=== PATIENT | female | born 1995 | race Caucasian/White ===

== ENCOUNTER 2020-04-22 19:14 | Emergency (ER) | payer OTHER, BC ==
[2020-04-22 19:23] VITALS: BP 101/70; PULSE 94; TEMP 98.1; BMI 17.9
[2020-04-22] MEDS ORDERED: MAG HYDROX/AL HYDROX/SIMETH -MYLANTA- ORAL SUSPENSION PO ONE (20:16)
[2020-04-22] MEDS ORDERED: FAMOTIDINE 20 MG/50 ML IVPB 20 MG/50 ML MG IVPB ONE ×2 (20:17→20:33)
[2020-04-22] MEDS ORDERED: SODIUM CHLORIDE 1,000 ML IV STA (20:20)
[2020-04-22] MEDS ORDERED: MAG HYDROX/AL HYDROX/SIMETH 30 ML UNIT-DOSE CUP ONE (20:33)
[2020-04-22 20:36] LABS: BASO % 0.3 % (0-2.0); HEMATOCRIT 38.6 % (32.4-45.2); HEMOGLOBIN 13.1 GM/dL (10.7-15.3); LYMPH % 38.7 % (8-40); MCH 29.5 pg (25.7-33.7); MCHC 33.9 g/dl (32.0-36.0); MEAN CELL VOLUME 87.1 fl (80-96); MEAN PLT VOLUME 8.3 fl (7.5-11.1); MONO % 8.6 % (3.8-10.2); NEUT % 51.4 % (42.8-82.8); PLATELET COUNT 220 K/MM3 (134-434); RBC 4.44 M/mm3 (3.60-5.2); RDW 12.4 % (11.6-15.6); WHITE BLOOD COUNT 4.8 K/mm3 (4.0-10.0)
[2020-04-22] MEDS ORDERED: SUCRALFATE 1 GM TABLET (FP) PO ONE (20:49)
[2020-04-22] MEDS ORDERED: LIDOCAINE VISCOUS 2% ORAL/TOP 20 ML UNIT-DOSE CUP MM ONE (20:49)
[2020-04-22 21:07] LABS: POTASSIUM 3.9 mmol/L (3.5-5.1)
[2020-04-22 21:09] LABS: ALBUMIN 4.1 g/dl (3.4-5.0); BLOOD UREA NITROGEN 10.2 mg/dL (7-18); CALCIUM 9.1 mg/dL (8.5-10.1)
[2020-04-22 21:12] LABS: CREATININE 0.6 mg/dL (0.55-1.3)
[2020-04-22 21:14] LABS: BILIRUBIN,TOTAL 0.6 mg/dL (0.2-1); TOT PROT 7.7 g/dl (6.4-8.2)
[2020-04-22 22:16] LABS: EPI CELLS 27 /uL (0-25.1); HYALINE CASTS 2 /uL (0-3.1); PH,URINE 6.5 (5.0-8.0); URINE APPEARANCE CLEAR; URINE BACTERIA 3488 /uL (0-1359); URINE BILIRUBIN NEGATIVE (NEGATIVE); URINE COLOR YELLOW; URINE GLUCOSE (UA) NEGATIVE (NEGATIVE); URINE KETONE NEGATIVE (NEGATIVE); URINE LEUK ESTERASE 1+ (NEGATIVE); URINE NITRITE NEGATIVE (NEGATIVE); URINE PROTEIN NEGATIVE (NEGATIVE); URINE RBC 35 /uL (0-23.9); URINE WBC 29 /uL (0-25.8)
== END 2020-04-22 23:14 | disposition home or self-care (01) ==
LOC: JER 19:14
PROC: 3E033NZ Introduction of Analgesics, Hypnotics, Sedatives into Peripheral Vein, Percutaneous Approach (ICD-10-PCS; principal; 2020-04-22)
PROC: 3E0337Z Introduction of Electrolytic and Water Balance Substance into Peripheral Vein, Percutaneous Approach (ICD-10-PCS; 2020-04-22)
DX: R10.13 Epigastric pain (principal)
CPT/HCPCS: 36415; 80053; 81003; 83690; 84703; 85025; 87086; 99285-25

== ENCOUNTER 2020-06-15 04:25 | Day surgery (SDC) | payer OTHER, BC ==
[2020-06-14 13:13] VITALS: BMI 18.0
[2020-06-15 11:07] VITALS: TEMP 69.9
[2020-06-15 11:48] VITALS: BP 104/66; PULSE 63
== END 2020-06-15 11:56 | disposition home or self-care (01) ==
LOC: JASU-ENDO 04:25
PROVIDERS: ATTEND Internal Medicine Gastroenterology
PROC: 0DB78ZX Excision of Stomach, Pylorus, Via Natural or Artificial Opening Endoscopic, Diagnostic (ICD-10-PCS; 2020-06-15)
PROC: 0DB98ZX Excision of Duodenum, Via Natural or Artificial Opening Endoscopic, Diagnostic (ICD-10-PCS; principal; 2020-06-15 10:30)
DX: K29.50 Unspecified chronic gastritis without bleeding (principal); R11.2 Nausea with vomiting, unspecified
CPT/HCPCS: 81025; 88305-TC; 88342-TC

== ENCOUNTER 2021-05-05 09:59 | Observation (INO) | payer BC, OTHER ==
[2021-05-05 11:32] LABS: BASO % 0.1 % (0-2.0); EOS % 0.5 % (0-4.5); HEMATOCRIT 39.5 % (32.4-45.2); HEMOGLOBIN 13.5 GM/dL (10.7-15.3); LYMPH % 10.9 % (8-40); MCH 29.3 pg (25.7-33.7); MCHC 34.2 g/dl (32.0-36.0); MEAN CELL VOLUME 85.7 fl (80-96); MEAN PLT VOLUME 7.6 fl (7.5-11.1); MONO % 6.7 % (3.8-10.2); NEUT % 81.8 % (42.8-82.8); PLATELET COUNT 273 10^3/uL (134-434); RBC 4.61 M/mm3 (3.60-5.2); WHITE BLOOD COUNT 8.6 K/mm3 (4.0-10.0)
[2021-05-05 12:15] LABS: ALBUMIN 4.1 g/dl (3.4-5.0); BLOOD UREA NITROGEN 6.8 mg/dL (7-18); CALCIUM 8.9 mg/dL (8.5-10.1)
[2021-05-05 12:18] LABS: CREATININE 0.6 mg/dL (0.55-1.3)
[2021-05-05 12:20] LABS: BILIRUBIN,TOTAL 1.2 mg/dL (0.2-1); TOT PROT 7.3 g/dl (6.4-8.2)
[2021-05-05] MEDS ORDERED: CIPROFLOXACIN 400 MG/D5W 400 MG/200 ML IVPB IVPB ONE (14:22)
[2021-05-05] MEDS ORDERED: CIPROFLOXACIN 500 MG TABLET (RESTRICTED TO ID) PO ONE (14:29)
[2021-05-05] MEDS ORDERED: diphenhydrAMINE HCL 25 MG CAPSULE (FP) PO ONE ×2 (14:46→15:10)
[2021-05-05] MEDS ORDERED: LACTATED RINGERS SOLUTION 1000 ML INFUS.BAG IV ONE (14:46)
[2021-05-05 17:34] LABS: HCG,QUALITATIVE URINE Negative
[2021-05-05] MEDS ORDERED: ALPRAZolam 0.25 MG TABLET PO PRN (17:56)
[2021-05-05 18:52] LABS: EPI CELLS 6 /uL (0-25.1); HYALINE CASTS 0 /uL (0-3.1); PH,URINE 6.5 (5.0-8.0); URINE APPEARANCE CLEAR; URINE BACTERIA 154 /uL (0-1359); URINE BILIRUBIN NEGATIVE (NEGATIVE); URINE COLOR YELLOW; URINE GLUCOSE (UA) NEGATIVE (NEGATIVE); URINE KETONE 1+ (NEGATIVE); URINE LEUK ESTERASE NEGATIVE (NEGATIVE); URINE NITRITE NEGATIVE (NEGATIVE); URINE PROTEIN NEGATIVE (NEGATIVE); URINE RBC 847 /uL (0-23.9); URINE UROBILINOGEN 0.2 mg/dL (0.2-1.0); URINE WBC 17 /uL (0-25.8)
[2021-05-05] MEDS ORDERED: ACETAMINOPHEN INJECTION 100 ML IVPB ONE (19:25)
[2021-05-05] MEDS: ACETAMINOPHEN 1000 MG/100 ML BAG IVPB PRN (19:32)
[2021-05-05 20:49] VITALS: BMI 20.7
[2021-05-05] MEDS: GABAPENTIN 100 MG CAPSULE PO SCH (21:30)
[2021-05-05] MEDS ORDERED: SODIUM PHOSPHATE/NA BIPHOS 133 ML ENEMA PR ONE (22:00)
[2021-05-06] MEDS ORDERED: SODIUM PHOSPHATE/NA BIPHOS 133 ML ENEMA PR ONE (08:00)
[2021-05-06 08:02] LABS: BASO % 0.3 % (0-2.0); EOS % 2.8 % (0-4.5); HEMATOCRIT 35.8 % (32.4-45.2); HEMOGLOBIN 12.3 GM/dL (10.7-15.3); LYMPH % 23.1 % (8-40); MCH 29.4 pg (25.7-33.7); MCHC 34.4 g/dl (32.0-36.0); MEAN CELL VOLUME 85.5 fl (80-96); MEAN PLT VOLUME 7.6 fl (7.5-11.1); MONO % 9.3 % (3.8-10.2); NEUT % 64.5 % (42.8-82.8); PLATELET COUNT 236 10^3/uL (134-434); RBC 4.19 M/mm3 (3.60-5.2); RDW 12.9 % (11.6-15.6); WHITE BLOOD COUNT 3.6 K/mm3 (4.0-10.0)
[2021-05-06 08:08] LABS: INR 1.1 (0.83-1.09); PROTHROMBIN TIME (PATIENT) 12.7 SEC (9.7-13.0)
[2021-05-06 08:25] LABS: CALCIUM 8.6 mg/dL (8.5-10.1)
[2021-05-06 08:26] LABS: BLOOD UREA NITROGEN 3.8 mg/dL (7-18)
[2021-05-06 08:29] LABS: CREATININE 0.6 mg/dL (0.55-1.3)
[2021-05-06] MEDS ORDERED: DULoxetine HCL 30 MG CAPSULE.DR PO ONE (09:09)
[2021-05-06] MEDS: GABAPENTIN 100 MG CAPSULE PO SCH (09:16)
[2021-05-06] MEDS: ACETAMINOPHEN 1000 MG/100 ML BAG IVPB PRN (09:18)
[2021-05-06] MEDS ORDERED: DULoxetine HCL 60 MG CAPSULE.DR PO SCH (10:00)
[2021-05-06 14:44] VITALS: BP 110/67; PULSE 86; TEMP 97.7
== END 2021-05-06 17:40 | disposition home or self-care (01) ==
LOC: JER 09:59 → INTOOBSV 14:18 → JERBED 14:18 → UNDOADMOB 14:18 → JERBED 20:17 → J7W 20:17
PROVIDERS: ADMIT Internal Medicine; ATTEND Internal Medicine
PROC: 0DBL8ZX Excision of Transverse Colon, Via Natural or Artificial Opening Endoscopic, Diagnostic (ICD-10-PCS; 2021-05-06)
PROC: 0DBN8ZX Excision of Sigmoid Colon, Via Natural or Artificial Opening Endoscopic, Diagnostic (ICD-10-PCS; 2021-05-06)
PROC: 0DBM8ZX Excision of Descending Colon, Via Natural or Artificial Opening Endoscopic, Diagnostic (ICD-10-PCS; principal; 2021-05-06 12:30)
DX: K52.9 Noninfective gastroenteritis and colitis, unspecified (principal); K62.5 Hemorrhage of anus and rectum; J45.909 Unspecified asthma, uncomplicated; F31.9 Bipolar disorder, unspecified; F41.9 Anxiety disorder, unspecified; Z88.8 Allergy status to other drugs, medicaments and biological substances; K92.9 Disease of digestive system, unspecified; M79.7 Fibromyalgia; L56.3 Solar urticaria; R10.9 Unspecified abdominal pain
CPT/HCPCS: 36415; 74177-TC; 80048; 80053; 81003; 82272; 84703; 85025; 85610; 87045; 87046; 87086; 87177; 87205; 87209; 87324; 87449; 88305-TC; 93005; 93010; 99285-25; C9803-CS; G0378; Q9967; U0003; U0005

== ENCOUNTER 2021-06-13 15:26 | Observation (INO) | payer OTHER ==
[2021-06-13 15:56] VITALS: BMI 20.9
[2021-06-13 17:48] LABS: BASO % 0.1 % (0-2.0); EOS % 0.8 % (0-4.5); LYMPH % 25.4 % (8-40); MCH 28.7 pg (25.7-33.7); MCHC 33.3 g/dl (32.0-36.0); MEAN PLT VOLUME 8.1 fl (7.5-11.1); NEUT % 63.7 % (42.8-82.8); PLATELET COUNT 262 10^3/uL (134-434); RBC 4.53 M/mm3 (3.60-5.2); RDW 12.6 % (11.6-15.6); WHITE BLOOD COUNT 6.3 K/mm3 (4.0-10.0)
[2021-06-13 17:57] LABS: ACTIVATED PTT 33.5 SECONDS (25.2-36.5); INR 0.97 (0.83-1.09); PROTHROMBIN TIME (PATIENT) 11.2 SEC (9.7-13.0)
[2021-06-13 18:07] LABS: CALCIUM 9.1 mg/dL (8.5-10.1)
[2021-06-13 18:08] LABS: ALBUMIN 3.9 g/dl (3.4-5.0); BLOOD UREA NITROGEN 10.8 mg/dL (7-18)
[2021-06-13 18:11] LABS: CREATININE 0.6 mg/dL (0.55-1.3)
[2021-06-13 18:12] LABS: TOT PROT 7.3 g/dl (6.4-8.2)
[2021-06-13 18:13] LABS: BILIRUBIN,TOTAL 0.8 mg/dL (0.2-1)
[2021-06-13] MEDS ORDERED: ACETAMINOPHEN 1000 MG/100 ML BAG IVPB ONE (20:08)
[2021-06-13] MEDS ORDERED: ACETAMINOPHEN INJECTION 100 ML IVPB ONE (20:10)
[2021-06-13] MEDS ORDERED: DEXTROSE 5%-0.45% SALINE 1,000 ML IV SCH (23:15)
[2021-06-14 07:06] VITALS: BP 102/58; PULSE 66; TEMP 98.1
[2021-06-14 08:48] LABS: BASO % 0.3 % (0-2.0); EOS % 0.8 % (0-4.5); HEMATOCRIT 37.7 % (32.4-45.2); HEMOGLOBIN 12.5 GM/dL (10.7-15.3); LYMPH % 27.2 % (8-40); MCH 28.5 pg (25.7-33.7); MCHC 33.1 g/dl (32.0-36.0); MEAN CELL VOLUME 86.1 fl (80-96); MEAN PLT VOLUME 8.2 fl (7.5-11.1); NEUT % 61.7 % (42.8-82.8); PLATELET COUNT 211 10^3/uL (134-434); RBC 4.38 M/mm3 (3.60-5.2); RDW 12.5 % (11.6-15.6); WHITE BLOOD COUNT 5.3 K/mm3 (4.0-10.0)
[2021-06-14] MEDS ORDERED: ACETAMINOPHEN 325 MG TABLET (FP) PO PRN (08:57)
[2021-06-14 09:14] LABS: CALCIUM 8.6 mg/dL (8.5-10.1)
[2021-06-14 09:18] LABS: BLOOD UREA NITROGEN 8.6 mg/dL (7-18)
[2021-06-14 09:21] LABS: CREATININE 0.6 mg/dL (0.55-1.3)
[2021-06-14] MEDS ORDERED: DULoxetine HCL 30 MG CAPSULE.DR PO SCH (10:00)
[2021-06-14] MEDS ORDERED: GABAPENTIN 100 MG CAPSULE PO SCH (10:00)
[2021-06-14] MEDS ORDERED: LUMATEPERONE TOSYLATE 42 MG PO SCH ×2 (22:00)
== END 2021-06-14 12:15 | disposition home or self-care (01) ==
LOC: JER 15:26 → JERBED 20:05 → J8W 06-14 01:53
PROVIDERS: ADMIT Internal Medicine; ATTEND Internal Medicine
PROC: 3E033GC Introduction of Other Therapeutic Substance into Peripheral Vein, Percutaneous Approach (ICD-10-PCS; principal; 2021-06-13)
PROC: 3E033NZ Introduction of Analgesics, Hypnotics, Sedatives into Peripheral Vein, Percutaneous Approach (ICD-10-PCS; 2021-06-13)
DX: K52.9 Noninfective gastroenteritis and colitis, unspecified (principal); F31.9 Bipolar disorder, unspecified; F25.9 Schizoaffective disorder, unspecified; J45.909 Unspecified asthma, uncomplicated; F41.9 Anxiety disorder, unspecified; Z88.8 Allergy status to other drugs, medicaments and biological substances; K59.00 Constipation, unspecified
CPT/HCPCS: 36415; 80048; 80053; 82272; 85025; 85610; 85730; 86480; 86704; 86850; 86900; 86901; 87340; 87517; 99285-25; C9803-CS; G0378; U0003; U0005

== ENCOUNTER 2021-06-28 04:48 | Day surgery (SDC) | payer OTHER ==
[2021-06-27 07:04] VITALS: BMI 20.3
[2021-06-28 12:26] VITALS: TEMP 98
[2021-06-28 13:40] VITALS: BP 107/71; PULSE 56
[2021-07-01 16:09] LABS: ATYPICAL pANCA <1:20 titer (Neg:<1:20)
== END 2021-06-28 13:35 | disposition home or self-care (01) ==
LOC: JASU-ENDO 04:48
PROVIDERS: ATTEND Internal Medicine Gastroenterology
PROC: 0DBL8ZX Excision of Transverse Colon, Via Natural or Artificial Opening Endoscopic, Diagnostic (ICD-10-PCS; 2021-06-28)
PROC: 0DBN8ZX Excision of Sigmoid Colon, Via Natural or Artificial Opening Endoscopic, Diagnostic (ICD-10-PCS; 2021-06-28)
PROC: 0DBP8ZX Excision of Rectum, Via Natural or Artificial Opening Endoscopic, Diagnostic (ICD-10-PCS; 2021-06-28)
PROC: 0DBM8ZX Excision of Descending Colon, Via Natural or Artificial Opening Endoscopic, Diagnostic (ICD-10-PCS; 2021-06-28)
PROC: 0DBK8ZX Excision of Ascending Colon, Via Natural or Artificial Opening Endoscopic, Diagnostic (ICD-10-PCS; principal; 2021-06-28 11:45)
DX: K52.9 Noninfective gastroenteritis and colitis, unspecified (principal); K64.9 Unspecified hemorrhoids; K59.89 Other specified functional intestinal disorders
CPT/HCPCS: 36415; 81025; 86256; 86671; 88305-TC

== ENCOUNTER 2022-01-24 04:43 | Day surgery (SDC) | payer OTHER ==
[2022-01-20 11:25] VITALS: BMI 22.4
[2022-01-24 12:23] VITALS: RESP 20
[2022-01-24 12:26] VITALS: BP 113/74; PULSE 68; TEMP 98
== END 2022-01-24 12:37 | disposition home or self-care (01) ==
LOC: JASU-ENDO 04:43
PROVIDERS: ATTEND Internal Medicine Gastroenterology
PROC: 0DJD8ZZ Inspection of Lower Intestinal Tract, Via Natural or Artificial Opening Endoscopic (ICD-10-PCS; principal; 2022-01-24 11:30)
DX: Z09 Encounter for follow-up examination after completed treatment for conditions other than malignant neoplasm (principal); K64.8 Other hemorrhoids; Z87.19 Personal history of other diseases of the digestive system

== ENCOUNTER 2022-04-21 10:06 | Emergency (ER) | payer OTHER ==
[2022-04-21 10:14] VITALS: RESP 20; TEMP 98.6; BMI 22.4
[2022-04-21] MEDS ORDERED: SODIUM CHLORIDE 0.9% 500 ML INFUS.BAG IV ONE (11:04)
[2022-04-21] MEDS ORDERED: ACETAMINOPHEN 1000 MG/100 ML BAG IVPB ONE (11:04)
[2022-04-21 11:45] LABS: BASO % 0.3 % (0-2.0); EOS % 1.3 % (0-4.5); HEMATOCRIT 39.6 % (32.4-45.2); HEMOGLOBIN 13.3 GM/dL (10.7-15.3); LYMPH % 23.5 % (8-40); MCH 29.5 pg (25.7-33.7); MCHC 33.5 g/dl (32.0-36.0); MEAN CELL VOLUME 87.8 fl (80-96); MEAN PLT VOLUME 8.3 fl (7.5-11.1); MONO % 9.6 % (3.8-10.2); NEUT % 65.3 % (42.8-82.8); PLATELET COUNT 289 10^3/uL (134-434); RBC 4.51 M/mm3 (3.60-5.2); RDW 13.6 % (11.6-15.6); WHITE BLOOD COUNT 4.8 K/mm3 (4.0-10.0)
[2022-04-21 11:47] LABS: INR 0.97 (0.83-1.09); PROTHROMBIN TIME (PATIENT) 11.2 SEC (9.7-13.0)
[2022-04-21 11:50] LABS: ACTIVATED PTT 34.4 SECONDS (25.2-36.5)
[2022-04-21 12:03] LABS: CALCIUM 9.1 mg/dL (8.5-10.1)
[2022-04-21 12:04] LABS: ALBUMIN 4.1 g/dl (3.4-5.0); BLOOD UREA NITROGEN 11.6 mg/dL (7-18)
[2022-04-21 12:06] LABS: CREATININE 0.6 mg/dL (0.55-1.3)
[2022-04-21 12:08] LABS: BILIRUBIN,TOTAL 0.6 mg/dL (0.2-1); TOT PROT 7.3 g/dl (6.4-8.2)
[2022-04-21] MEDS ORDERED: ACETAMINOPHEN INJECTION 100 ML IVPB ONE (13:09)
[2022-04-21] MEDS ORDERED: methylPREDNISolone NA SUCC 40 MG/1 ML VIAL ONE ×2 (13:19→13:20)
[2022-04-21] MEDS ORDERED: methylPREDNISolone NA SUCC 40 MG/1 ML VIAL IVPUSH ONE (13:20)
[2022-04-21 16:43] VITALS: BP 132/78; PULSE 88
== END 2022-04-21 16:43 | disposition home or self-care (01) ==
LOC: JER 10:06
PROC: 3E033NZ Introduction of Analgesics, Hypnotics, Sedatives into Peripheral Vein, Percutaneous Approach (ICD-10-PCS; principal; 2022-04-21)
PROC: 3E033GC Introduction of Other Therapeutic Substance into Peripheral Vein, Percutaneous Approach (ICD-10-PCS; 2022-04-21)
PROC: 3E033GC Introduction of Other Therapeutic Substance into Peripheral Vein, Percutaneous Approach (ICD-10-PCS; 2022-04-21)
DX: R10.31 Right lower quadrant pain (principal); R19.5 Other fecal abnormalities; Z87.19 Personal history of other diseases of the digestive system
CPT/HCPCS: 36415; 74177-TC; 80053; 82272; 83690; 84703; 85025; 85610; 85730; 86850; 86900; 86901; 87045; 87046; 87186; 99285-25

== ENCOUNTER 2022-05-09 12:39 | Inpatient (IN) | payer OTHER ==
[2022-05-09 12:59] VITALS: BMI 21.7
[2022-05-09] MEDS ORDERED: SODIUM CHLORIDE 0.9% 500 ML INFUS.BAG IV ONE (14:06)
[2022-05-09] MEDS ORDERED: ACETAMINOPHEN 1000 MG/100 ML BAG IVPB ONE (14:06)
[2022-05-09] MEDS ORDERED: ACETAMINOPHEN INJECTION 100 ML IVPB ONE (14:29)
[2022-05-09 15:12] VITALS: BP 103/74; PULSE 94; RESP 16; TEMP 98
[2022-05-09 15:38] LABS: BASO % 0.3 % (0-2.0); EOS % 0.6 % (0-4.5); HEMATOCRIT 39.4 % (32.4-45.2); HEMOGLOBIN 13.2 GM/dL (10.7-15.3); MCH 29.3 pg (25.7-33.7); MCHC 33.6 g/dl (32.0-36.0); MEAN CELL VOLUME 87.2 fl (80-96); MEAN PLT VOLUME 8.6 fl (7.5-11.1); MONO % 8.3 % (3.8-10.2); NEUT % 64.8 % (42.8-82.8); PLATELET COUNT 257 10^3/uL (134-434); RBC 4.51 M/mm3 (3.60-5.2); RDW 13.1 % (11.6-15.6); WHITE BLOOD COUNT 6.8 K/mm3 (4.0-10.0)
[2022-05-09 15:45] LABS: INR 0.97 (0.83-1.09); PROTHROMBIN TIME (PATIENT) 11.2 SEC (9.7-13.0)
[2022-05-09 15:54] LABS: EPI CELLS 31 /uL (0-25.1); HYALINE CASTS 4 /uL (0-3.1); PH,URINE 6.5 (5.0-8.0); URINE APPEARANCE CLOUDY; URINE BACTERIA 1933 /uL (0-1359); URINE BILIRUBIN NEGATIVE (NEGATIVE); URINE COLOR YELLOW; URINE GLUCOSE (UA) NEGATIVE (NEGATIVE); URINE KETONE 2+ (NEGATIVE); URINE LEUK ESTERASE TRACE (NEGATIVE); URINE NITRITE NEGATIVE (NEGATIVE); URINE PROTEIN NEGATIVE (NEGATIVE); URINE RBC 52 /uL (0-23.9); URINE WBC 32 /uL (0-25.8)
[2022-05-09 15:55] LABS: HCG,QUALITATIVE URINE Negative
[2022-05-09] MEDS ORDERED: ONDANSETRON 4 MG/2 ML VIAL IVPUSH ONE (15:55)
[2022-05-09 16:00] LABS: ALBUMIN 4.3 g/dl (3.4-5.0); BLOOD UREA NITROGEN 8.3 mg/dL (7-18); CALCIUM 9.7 mg/dL (8.5-10.1)
[2022-05-09 16:04] LABS: CREATININE 0.7 mg/dL (0.55-1.3)
[2022-05-09 16:05] LABS: BILIRUBIN,TOTAL 1.2 mg/dL (0.2-1); TOT PROT 7.6 g/dl (6.4-8.2)
[2022-05-09] MEDS ORDERED: ALPRAZolam 0.25 MG TABLET PO PRN (17:04)
[2022-05-09] MEDS ORDERED: MESALAMINE 4 GM/60 ML ENEMA RC SCH (22:00)
[2022-05-09] MEDS ORDERED: MESALAMINE 800 MG TABLET.DR PO SCH (22:00)
[2022-05-09] MEDS ORDERED: GABAPENTIN 300 MG CAPSULE PO SCH (22:00)
[2022-05-10] MEDS ORDERED: LAMOTRIGINE PO SCH ×2 (10:00)
[2022-05-10] MEDS ORDERED: DULoxetine HCL 30 MG CAPSULE.DR PO SCH (10:00)
== END 2022-05-09 17:40 | disposition left against medical advice (07) | DRG 386 ==
LOC: JER 12:39 → JERBED 16:57 → JER 18:00
PROVIDERS: ADMIT Internal Medicine; ATTEND Internal Medicine
DX: K51.80 Other ulcerative colitis without complications (principal); F31.30 Bipolar disorder, current episode depressed, mild or moderate severity, unspecified; K62.5 Hemorrhage of anus and rectum; K58.9 Irritable bowel syndrome, unspecified; M79.7 Fibromyalgia; L56.3 Solar urticaria; F43.12 Post-traumatic stress disorder, chronic; K58.8 Other irritable bowel syndrome; R41.9 Unspecified symptoms and signs involving cognitive functions and awareness; F50.89 Other specified eating disorder; Z68.21 Body mass index [BMI] 21.0-21.9, adult; N83.292 Other ovarian cyst, left side; N83.291 Other ovarian cyst, right side; F25.9 Schizoaffective disorder, unspecified; D25.9 Leiomyoma of uterus, unspecified; R10.11 Right upper quadrant pain; K64.8 Other hemorrhoids; R63.4 Abnormal weight loss; Z87.19 Personal history of other diseases of the digestive system
CPT/HCPCS: 36415; 76830-TC; 80053; 81003; 84703; 85025; 85610; 86850; 86900; 86901; 87086; 93005; 93010; 99285-25

== ENCOUNTER 2022-06-01 04:18 | Day surgery (SDC) | payer OTHER ==
[2022-05-31 12:43] VITALS: BMI 21.9
[2022-06-01 14:10] VITALS: TEMP 98
[2022-06-01 14:19] VITALS: RESP 16
[2022-06-01 16:10] VITALS: BP 104/69; PULSE 74
== END 2022-06-01 15:10 | disposition home or self-care (01) ==
LOC: JASU-ENDO 04:18
PROVIDERS: ATTEND Internal Medicine Gastroenterology
PROC: 0DJD8ZZ Inspection of Lower Intestinal Tract, Via Natural or Artificial Opening Endoscopic (ICD-10-PCS; principal; 2022-06-01 12:45)
DX: K64.8 Other hemorrhoids (principal); K92.1 Melena
CPT/HCPCS: 81025

== ENCOUNTER 2023-06-27 15:26 | Emergency (ER) | payer OTHER ==
[2023-06-27 15:38] VITALS: RESP 18; BMI 23.7
[2023-06-27] MEDS ORDERED: diphenhydrAMINE HCL 25 MG CAPSULE (FP) PO ONE (17:15)
[2023-06-27] MEDS ORDERED: ACETAMINOPHEN INJECTION 100 ML IVPB ONE (17:15)
[2023-06-27] MEDS: LACTATED RINGERS SOLUTION 1000 ML INFUS.BAG IV ONE (17:22)
[2023-06-27] MEDS: diphenhydrAMINE HCL 50 MG CAPSULE PO ONE (17:22)
[2023-06-27] MEDS: ACETAMINOPHEN 1000 MG/100 ML BAG IVPB ONE (17:23)
[2023-06-27 17:33] LABS: BASO % 0.3 % (0-2.0); EOS % 1.2 % (0-4.5); HEMATOCRIT 39.1 % (32.4-45.2); HEMOGLOBIN 13.1 GM/dL (10.7-15.3); LYMPH % 24.8 % (8-40); MCH 29.5 pg (25.7-33.7); MCHC 33.7 g/dl (32.0-36.0); MEAN CELL VOLUME 87.8 fl (80-96); MEAN PLT VOLUME 8.6 fl (7.5-11.1); MONO % 9.9 % (3.8-10.2); NEUT % 63.8 % (42.8-82.8); PLATELET COUNT 271 10^3/uL (134-434); RBC 4.45 M/mm3 (3.60-5.2); RDW 12.7 % (11.6-15.6); WHITE BLOOD COUNT 5.8 K/mm3 (4.0-10.0)
[2023-06-27 17:34] LABS: EPI CELLS 8 /uL (0-25.1); HYALINE CASTS 0 /uL (0-3.1); URINE APPEARANCE CLEAR; URINE BACTERIA 36 /uL (0-1359); URINE BILIRUBIN NEGATIVE (NEGATIVE); URINE COLOR YELLOW; URINE GLUCOSE (UA) NEGATIVE (NEGATIVE); URINE KETONE 1+ (NEGATIVE); URINE LEUK ESTERASE NEGATIVE (NEGATIVE); URINE NITRITE NEGATIVE (NEGATIVE); URINE PROTEIN NEGATIVE (NEGATIVE); URINE RBC 20 /uL (0-23.9); URINE WBC 7 /uL (0-25.8)
[2023-06-27 17:43] LABS: ACTIVATED PTT 33.1 SECONDS (25.2-36.5); INR 0.95 (0.83-1.09); PROTHROMBIN TIME (PATIENT) 10.7 SEC (9.7-13.0)
[2023-06-27 17:50] LABS: POTASSIUM 4.4 mmol/L (3.5-5.1)
[2023-06-27 17:52] LABS: CALCIUM 9.5 mg/dL (8.5-10.1)
[2023-06-27 17:53] LABS: BLOOD UREA NITROGEN 14.6 mg/dL (7-18)
[2023-06-27 17:56] LABS: CREATININE 0.7 mg/dL (0.55-1.3)
[2023-06-27 17:57] LABS: BILIRUBIN,TOTAL 0.7 mg/dL (0.2-1); TOT PROT 7.3 g/dl (6.4-8.2)
[2023-06-27 20:23] VITALS: BP 122/85; PULSE 80; TEMP 98.3
[2023-06-27] MEDS ORDERED: DEXAMETHASONE SOD PHOSPHATE 10 MG/1 ML VIAL ONE (21:09)
[2023-06-27] MEDS: DEXAMETHASONE SOD PHOSPHATE 10 MG/1 ML VIAL IVPUSH ONE (21:20)
== END 2023-06-27 21:38 | disposition home or self-care (01) ==
LOC: JER 15:26
PROC: 3E033NZ Introduction of Analgesics, Hypnotics, Sedatives into Peripheral Vein, Percutaneous Approach (ICD-10-PCS; principal; 2023-06-27)
PROC: 3E033GC Introduction of Other Therapeutic Substance into Peripheral Vein, Percutaneous Approach (ICD-10-PCS; 2023-06-27)
DX: R10.84 Generalized abdominal pain (principal); R63.4 Abnormal weight loss
CPT/HCPCS: 36415; 74177-TC; 76830-TC; 80053; 81003; 83605; 83690; 84703; 85025; 85610; 85730; 86850; 86900; 86901; 87086; 93005; 93010; 99285-25; J0131; J1100

== ENCOUNTER 2023-07-16 04:42 | Day surgery (SDC) | payer OTHER ==
[2023-07-06 09:47] VITALS: BMI 23.0
[2023-07-16] MEDS ORDERED: BUPIVACAINE HCL/PF 0.5% (5MG/ML) 10 ML VIAL ONE (08:40)
[2023-07-16] MEDS ORDERED: ONDANSETRON 4 MG/2 ML VIAL IVPUSH PRN (10:17)
[2023-07-16] MEDS ORDERED: PROMETHAZINE HCL 25 MG/1 ML VIAL IVPB PRN (10:17)
[2023-07-16] MEDS ORDERED: oxyCODONE HCL 5 MG TABLET PO PRN (10:17)
[2023-07-16] MEDS ORDERED: LACTATED RINGERS SOLUTION 1,000 ML IV SCH (10:30)
[2023-07-16] MEDS ORDERED: MIDAZOLAM HCL 2 MG/2 ML SINGLE DOSE VIAL ONE (10:39)
[2023-07-16] MEDS ORDERED: PROPOFOL 20 ML ONE ×2 (10:39→11:57)
[2023-07-16] MEDS ORDERED: FENTANYL CITRATE/PF 50 MCG/ML VIAL ONE ×4 (10:39→12:20)
[2023-07-16] MEDS ORDERED: ROCURONIUM BROMIDE 50 MG/5 ML VIAL ONE (10:41)
[2023-07-16] MEDS ORDERED: SCOPOLAMINE HYDROBROMIDE 1 PATCH PATCH.TD72 ONE (10:48)
[2023-07-16] MEDS ORDERED: SODIUM CHLORIDE 0.9% P/F 10 ML VIAL IJ ONE (10:56)
[2023-07-16] MEDS ORDERED: ceFAZolin SODIUM 1 GM VIAL ONE (10:56)
[2023-07-16] MEDS ORDERED: ACETAMINOPHEN INJECTION 100 ML IVPB ONE (10:59)
[2023-07-16] MEDS: ceFAZolin SODIUM 1 GM VIAL IVPB ONE (11:06)
[2023-07-16] MEDS ORDERED: NEOSTIGMINE METHYLSULFATE 0.5 MG/1 ML - 10 ML MDV ONE (11:50)
[2023-07-16] MEDS ORDERED: GLYCOPYRROLATE 0.2 MG/1 ML VIAL ONE (11:51)
[2023-07-16] MEDS ORDERED: KETOROLAC TROMETHAMINE 30 MG/1 ML VIAL ONE (12:00)
[2023-07-16] MEDS: HALOPERIDOL LACTATE 5 MG/ML ONE (12:33)
[2023-07-16 13:31] VITALS: RESP 16; TEMP 98.4
[2023-07-16 14:09] VITALS: BP 108/62; PULSE 82
== END 2023-07-16 14:19 | disposition home or self-care (01) ==
LOC: JASU-SURG 04:42
PROVIDERS: ATTEND Obstetrics & Gynecology
PROC: 0UB64ZX Excision of Left Fallopian Tube, Percutaneous Endoscopic Approach, Diagnostic (ICD-10-PCS; principal; 2023-07-16 10:00)
DX: N83.8 Other noninflammatory disorders of ovary, fallopian tube and broad ligament (principal); N80.00 Endometriosis of the uterus, unspecified; D25.2 Subserosal leiomyoma of uterus
CPT/HCPCS: 81025; 88307-TC; 94760; J0131

== ENCOUNTER 2024-02-17 08:26 | Observation (INO) | payer OTHER ==
[2024-02-17 08:35] VITALS: BMI 16.9
[2024-02-17 10:02] LABS: EPI CELLS 10 /uL (0-25.1); HYALINE CASTS 1 /uL (0-3.1); URINE APPEARANCE CLEAR; URINE BACTERIA 30 /uL (0-1359); URINE BILIRUBIN NEGATIVE (NEGATIVE); URINE COLOR YELLOW; URINE GLUCOSE (UA) NEGATIVE (NEGATIVE); URINE KETONE NEGATIVE (NEGATIVE); URINE LEUK ESTERASE NEGATIVE (NEGATIVE); URINE NITRITE NEGATIVE (NEGATIVE); URINE PROTEIN NEGATIVE (NEGATIVE); URINE RBC 28 /uL (0-23.9); URINE UROBILINOGEN 0.2 mg/dL (0.2-1.0); URINE WBC 8 /uL (0-25.8)
[2024-02-17 10:18] LABS: BASO % 0.5 % (0-2.0); EOS % 0.5 % (0-4.5); HEMATOCRIT 38.1 % (32.4-45.2); HEMOGLOBIN 12.4 GM/dL (10.7-15.3); LYMPH % 12.8 % (8-40); MCH 28.6 pg (25.7-33.7); MCHC 32.7 g/dl (32.0-36.0); MEAN CELL VOLUME 87.6 fl (80-96); MEAN PLT VOLUME 8.3 fl (7.5-11.1); MONO % 7.4 % (3.8-10.2); NEUT % 78.8 % (42.8-82.8); PLATELET COUNT 253 10^3/uL (134-434); RBC 4.34 M/mm3 (3.60-5.2); RDW 12.6 % (11.6-15.6); WHITE BLOOD COUNT 8.3 K/mm3 (4.0-10.0)
[2024-02-17 10:29] LABS: POTASSIUM 4.6 mmol/L (3.5-5.1)
[2024-02-17 10:31] LABS: ALBUMIN 3.6 g/dl (3.4-5.0); BLOOD UREA NITROGEN 12.7 mg/dL (7-18); CALCIUM 8.8 mg/dL (8.5-10.1)
[2024-02-17 10:35] LABS: CREATININE 0.7 mg/dL (0.55-1.3)
[2024-02-17 10:36] LABS: BILIRUBIN,TOTAL 0.6 mg/dL (0.2-1); TOT PROT 6.8 g/dl (6.4-8.2)
[2024-02-17] MEDS ORDERED: ACETAMINOPHEN 500 MG TABLET (FP) ONE (10:56)
[2024-02-17] MEDS: ACETAMINOPHEN 500 MG TABLET (FP) PO ONE (10:58)
[2024-02-17] MEDS ORDERED: ACETAMINOPHEN 500 MG TABLET (FP) PO PRN (13:33)
[2024-02-17] MEDS ORDERED: GABAPENTIN 400 MG CAPSULE ONE ×2 (15:06→21:53)
[2024-02-17] MEDS: SODIUM CHLORIDE 1,000 ML IV SCH (15:10)
[2024-02-17] MEDS: GABAPENTIN 400 MG CAPSULE PO SCH (15:11)
[2024-02-17] MEDS ORDERED: IBUPROFEN 400 MG TABLET (FP) PO ONE (20:14)
[2024-02-17] MEDS: VANCOMYCIN ORAL SOLUTION 125 MG/2.5 ML PO SCH (20:21)
[2024-02-17] MEDS: IBUPROFEN 400 MG TABLET (FP) PO ONE (20:22)
[2024-02-17] MEDS: DULoxetine HCL 30 MG CAPSULE.DR PO SCH (22:12)
[2024-02-18] MEDS ORDERED: GABAPENTIN 400 MG CAPSULE ONE (06:04)
[2024-02-18 07:15] LABS: CALCIUM 8.6 mg/dL (8.5-10.1)
[2024-02-18 07:16] LABS: BLOOD UREA NITROGEN 8.4 mg/dL (7-18)
[2024-02-18 07:17] VITALS: RESP 18
[2024-02-18 07:18] LABS: CREATININE 0.7 mg/dL (0.55-1.3)
[2024-02-18] MEDS ORDERED: NORGESTIMATE ETHINYL ESTRADIOL PO SCH (10:00)
[2024-02-18] MEDS ORDERED: DULoxetine HCL 30 MG CAPSULE.DR PO ONE (10:12)
[2024-02-18 12:07] VITALS: BP 121/72; PULSE 80; TEMP 98
== END 2024-02-18 14:14 | disposition home or self-care (01) ==
LOC: JER 08:26 → JERBED 13:03
PROVIDERS: ADMIT Internal Medicine
PROC: 3E0337Z Introduction of Electrolytic and Water Balance Substance into Peripheral Vein, Percutaneous Approach (ICD-10-PCS; principal; 2024-02-17)
DX: A04.72 Enterocolitis due to Clostridium difficile, not specified as recurrent (principal); R19.7 Diarrhea, unspecified; J45.909 Unspecified asthma, uncomplicated; E28.2 Polycystic ovarian syndrome; M35.9 Systemic involvement of connective tissue, unspecified; Z88.8 Allergy status to other drugs, medicaments and biological substances
CPT/HCPCS: 36415; 74176-TC; 80048; 80053; 81003; 84703; 85025; 87045; 87046; 87086; 87205; 87209; 87324; 87449; 87493; 93005; 93010; 99285-25; G0378

== ENCOUNTER 2024-03-04 12:50 | Inpatient (IN) | payer OTHER ==
[2024-03-04] MEDS: ONDANSETRON 4 MG/2 ML VIAL IVPB ONE (13:25)
[2024-03-04] MEDS: SODIUM CHLORIDE 0.9% 500 ML INFUS.BAG IV ONE (13:40)
[2024-03-04] MEDS ORDERED: ONDANSETRON 4 MG/2 ML VIAL ONE (13:59)
[2024-03-04 14:55] LABS: BASO % 0.1 % (0-2.0); EOS % 0.3 % (0-4.5); HEMATOCRIT 41.7 % (32.4-45.2); HEMOGLOBIN 13.9 GM/dL (10.7-15.3); LYMPH % 8.2 % (8-40); MCH 28.9 pg (25.7-33.7); MCHC 33.3 g/dl (32.0-36.0); MEAN CELL VOLUME 86.6 fl (80-96); MEAN PLT VOLUME 8.7 fl (7.5-11.1); MONO % 5.8 % (3.8-10.2); NEUT % 85.6 % (42.8-82.8); PLATELET COUNT 245 10^3/uL (134-434); RBC 4.81 M/mm3 (3.60-5.2); RDW 13.3 % (11.6-15.6); WHITE BLOOD COUNT 9.6 K/mm3 (4.0-10.0)
[2024-03-04 15:13] LABS: POTASSIUM 4.1 mmol/L (3.5-5.1)
[2024-03-04 15:15] LABS: CALCIUM 9.1 mg/dL (8.5-10.1)
[2024-03-04 15:16] LABS: BLOOD UREA NITROGEN 5.2 mg/dL (7-18)
[2024-03-04 15:17] LABS: ALBUMIN 3.7 g/dl (3.4-5.0)
[2024-03-04 15:18] VITALS: BMI 23.0
[2024-03-04 15:18] LABS: CREATININE 0.7 mg/dL (0.55-1.3)
[2024-03-04 15:20] LABS: BILIRUBIN,TOTAL 0.7 mg/dL (0.2-1); TOT PROT 7.2 g/dl (6.4-8.2)
[2024-03-04] MEDS: ACETAMINOPHEN 1000 MG/100 ML BAG IVPB ONE (15:55)
[2024-03-04 16:13] LABS: HIV INTERPRETATION NEGATIVE (NEGATIVE)
[2024-03-04] MEDS ORDERED: ACETAMINOPHEN INJECTION 100 ML ONE (16:24)
[2024-03-04] MEDS ORDERED: VANCOMYCIN ORAL SOLUTION 125 MG/2.5 ML PO SCH (18:00)
[2024-03-04] MEDS: VANCOMYCIN ORAL SOLUTION 125 MG/2.5 ML PO SCH (18:46)
[2024-03-04] MEDS ORDERED: morphine SULFATE 4 MG/ML VIAL ONE (20:00)
[2024-03-04] MEDS: morphine CARPU-JECT 2 MG/1 ML DISP.SYRIN IVPUSH ONE (20:07)
[2024-03-04] MEDS ORDERED: KETOROLAC TROMETHAMINE 15 MG/ML VIAL IVPUSH ONE (23:01)
[2024-03-04] MEDS: KETOROLAC TROMETHAMINE 15 MG/ML VIAL IVPUSH ONE (23:23)
[2024-03-05] MEDS ORDERED: oxyCODONE HCL 5 MG TABLET PO PRN
[2024-03-05] MEDS ORDERED: morphine SULFATE 4 MG/ML VIAL IVPUSH PRN
[2024-03-05] MEDS: ONDANSETRON 4 MG/2 ML VIAL IVPUSH PRN (00:06)
[2024-03-05] MEDS: DULoxetine HCL 30 MG CAPSULE.DR PO SCH (00:06)
[2024-03-05] MEDS: GABAPENTIN 400 MG CAPSULE PO SCH (00:06)
[2024-03-05] MEDS: morphine SULFATE 4 MG/ML VIAL IVPUSH PRN (05:17)
[2024-03-05 09:33] LABS: BASO % 0.1 % (0-2.0); EOS % 0.1 % (0-4.5); HEMATOCRIT 38.2 % (32.4-45.2); HEMATOCRIT 38.3 % (32.4-45.2); HEMOGLOBIN 12.7 GM/dL (10.7-15.3); LYMPH % 5.7 % (8-40); MCH 28.9 pg (25.7-33.7); MCHC 33.3 g/dl (32.0-36.0); MEAN CELL VOLUME 86.8 fl (80-96); MEAN PLT VOLUME 8.9 fl (7.5-11.1); MONO % 4.8 % (3.8-10.2); NEUT % 89.3 % (42.8-82.8); PLATELET COUNT 233 10^3/uL (134-434); PLATELET COUNT 236 10^3/uL (134-434); RBC 4.39 M/mm3 (3.60-5.2); RBC 4.41 M/mm3 (3.60-5.2); RDW 12.6 % (11.6-15.6); RDW 12.8 % (11.6-15.6); WHITE BLOOD COUNT 8.4 K/mm3 (4.0-10.0); WHITE BLOOD COUNT 8.5 K/mm3 (4.0-10.0)
[2024-03-05] MEDS: ENOXAPARIN NA (PORCINE) 40 MG/0.4 ML DISP.SYRIN SQ SCH (09:33)
[2024-03-05] MEDS: ACETAMINOPHEN 1000 MG/100 ML BAG IVPB ONE (09:47)
[2024-03-05 09:50] LABS: CALCIUM 8.8 mg/dL (8.5-10.1)
[2024-03-05 09:51] LABS: BLOOD UREA NITROGEN 4.9 mg/dL (7-18)
[2024-03-05 09:54] LABS: CREATININE 0.9 mg/dL (0.55-1.3)
[2024-03-05 10:09] LABS: MAGNESIUM 1.9 mg/dL (1.8-2.4)
[2024-03-05 10:10] LABS: POTASSIUM 3.7 mmol/L (3.5-5.1)
[2024-03-05 10:13] LABS: PHOSPHOROUS 2.6 mg/dL (2.5-4.9)
[2024-03-05 10:42] LABS: URINE APPEARANCE CLEAR; URINE BILIRUBIN NEGATIVE (NEGATIVE); URINE COLOR YELLOW; URINE GLUCOSE (UA) NEGATIVE (NEGATIVE); URINE KETONE NEGATIVE (NEGATIVE); URINE LEUK ESTERASE NEGATIVE (NEGATIVE); URINE NITRITE NEGATIVE (NEGATIVE); URINE PROTEIN NEGATIVE (NEGATIVE); URINE UROBILINOGEN 0.2 mg/dL (0.2-1.0)
[2024-03-05 11:02] LABS: EPI CELLS 9.3 /uL (0-25.1); HYALINE CASTS 0.41 /uL (0-3.1); URINE BACTERIA 363.7 /uL (0-1359); URINE RBC 26.8 /uL (0-23.9); URINE WBC 15.7 /uL (0-25.8)
[2024-03-05] MEDS: FAMOTIDINE 20 MG/50 ML IVPB 20 MG/50 ML MG IVPB ONE (14:08)
[2024-03-05] MEDS: ACETAMINOPHEN 1000 MG/100 ML BAG IV PRN (16:15)
[2024-03-05] MEDS: SODIUM CHLORIDE 1,000 ML IV SCH (16:39)
[2024-03-05] MEDS: FAMOTIDINE 20 MG/50 ML IVPB 20 MG/50 ML MG IVPB SCH (17:01)
[2024-03-05] MEDS ORDERED: FAMOTIDINE 20 MG/50 ML IVPB 20 MG/50 ML MG IVPB SCH (22:00)
[2024-03-05] MEDS: VANCOMYCIN 250 MG/5 ML ORAL SOLUTION (RESTRICTED TO ID ONLY) PO SCH (23:04)
[2024-03-06 09:37] LABS: HEMATOCRIT 37.3 % (32.4-45.2); MCH 29.8 pg (25.7-33.7); MCHC 34.8 g/dl (32.0-36.0); MEAN CELL VOLUME 85.5 fl (80-96); MEAN PLT VOLUME 8.5 fl (7.5-11.1); PLATELET COUNT 236 10^3/uL (134-434); RBC 4.36 M/mm3 (3.60-5.2); WHITE BLOOD COUNT 4.7 K/mm3 (4.0-10.0)
[2024-03-06 10:01] LABS: POTASSIUM 4.1 mmol/L (3.5-5.1)
[2024-03-06 10:14] LABS: BLOOD UREA NITROGEN 6.3 mg/dL (7-18); CALCIUM 8.7 mg/dL (8.5-10.1); MAGNESIUM 2.3 mg/dL (1.8-2.4)
[2024-03-06 10:17] LABS: PHOSPHOROUS 2.5 mg/dL (2.5-4.9)
[2024-03-06 10:18] LABS: CREATININE 0.7 mg/dL (0.55-1.3)
[2024-03-06] MEDS: diphenhydrAMINE HCL 25 MG CAPSULE (FP) PO ONE (21:59)
[2024-03-07 09:02] LABS: BASO % 0.3 % (0-2.0); EOS % 4.4 % (0-4.5); HEMATOCRIT 34.9 % (32.4-45.2); HEMOGLOBIN 12.1 GM/dL (10.7-15.3); LYMPH % 38.6 % (8-40); MCH 29.6 pg (25.7-33.7); MCHC 34.6 g/dl (32.0-36.0); MEAN CELL VOLUME 85.6 fl (80-96); MEAN PLT VOLUME 8.8 fl (7.5-11.1); MONO % 11.3 % (3.8-10.2); NEUT % 45.4 % (42.8-82.8); PLATELET COUNT 226 10^3/uL (134-434); RBC 4.08 M/mm3 (3.60-5.2); RDW 13.1 % (11.6-15.6); WHITE BLOOD COUNT 3.5 K/mm3 (4.0-10.0)
[2024-03-07 09:20] LABS: POTASSIUM 4.3 mmol/L (3.5-5.1)
[2024-03-07 09:21] LABS: CALCIUM 8.6 mg/dL (8.5-10.1)
[2024-03-07 09:22] LABS: BLOOD UREA NITROGEN 7.3 mg/dL (7-18)
[2024-03-07 09:25] LABS: CREATININE 0.7 mg/dL (0.55-1.3)
[2024-03-07] MEDS: diphenhydrAMINE HCL 25 MG CAPSULE (FP) PO ONE (12:40)
[2024-03-08 09:00] LABS: HEMATOCRIT 38.2 % (32.4-45.2); HEMOGLOBIN 12.9 GM/dL (10.7-15.3); MCH 28.9 pg (25.7-33.7); MCHC 33.8 g/dl (32.0-36.0); MEAN CELL VOLUME 85.5 fl (80-96); MEAN PLT VOLUME 8.4 fl (7.5-11.1); PLATELET COUNT 266 10^3/uL (134-434); RBC 4.47 M/mm3 (3.60-5.2); RDW 13.1 % (11.6-15.6); WHITE BLOOD COUNT 3.4 K/mm3 (4.0-10.0)
[2024-03-08 09:21] LABS: POTASSIUM 4.3 mmol/L (3.5-5.1)
[2024-03-08 09:37] LABS: CALCIUM 9.1 mg/dL (8.5-10.1)
[2024-03-08 09:38] LABS: ALBUMIN 3.3 g/dl (3.4-5.0); BLOOD UREA NITROGEN 4.7 mg/dL (7-18)
[2024-03-08 09:41] LABS: CREATININE 0.7 mg/dL (0.55-1.3)
[2024-03-08 09:42] LABS: BILIRUBIN,TOTAL 0.6 mg/dL (0.2-1)
[2024-03-08 09:43] LABS: TOT PROT 6.6 g/dl (6.4-8.2)
[2024-03-08] MEDS: diphenhydrAMINE HCL 25 MG CAPSULE (FP) PO ONE (21:35)
[2024-03-08] MEDS: KETOROLAC TROMETHAMINE 10 MG TABLET PO ONE (22:31)
[2024-03-09] MEDS ORDERED: diphenhydrAMINE HCL 25 MG CAPSULE (FP) PO PRN (11:59)
[2024-03-09] MEDS: KETOROLAC TROMETHAMINE 15 MG/ML VIAL IVPUSH PRN (13:20)
[2024-03-09] MEDS: morphine SULFATE 4 MG/ML VIAL IVPUSH PRN (15:53)
[2024-03-09] MEDS ORDERED: PEG 3350/NA SULF BICARB CL/KCL 4000 ML SOLN.RECON PO ONE (17:00)
[2024-03-09] MEDS: AMINO ACIDS/PROTEIN HYDROLYS 30 ML LIQUID.PKT PO SCH (17:02)
[2024-03-10 10:05] LABS: BASO % 0.4 % (0-2.0); EOS % 4.6 % (0-4.5); HEMATOCRIT 38.5 % (32.4-45.2); HEMOGLOBIN 12.8 GM/dL (10.7-15.3); LYMPH % 40.1 % (8-40); MCH 28.8 pg (25.7-33.7); MCHC 33.3 g/dl (32.0-36.0); MEAN CELL VOLUME 86.3 fl (80-96); MEAN PLT VOLUME 8.3 fl (7.5-11.1); NEUT % 44.9 % (42.8-82.8); PLATELET COUNT 296 10^3/uL (134-434); RBC 4.46 M/mm3 (3.60-5.2); RDW 12.8 % (11.6-15.6); WHITE BLOOD COUNT 3.4 K/mm3 (4.0-10.0)
[2024-03-10 10:09] LABS: INR 0.97 (0.83-1.09); PROTHROMBIN TIME (PATIENT) 10.7 SEC (9.7-13.0)
[2024-03-10 10:41] LABS: POTASSIUM 4.4 mmol/L (3.5-5.1)
[2024-03-10 10:45] LABS: ALBUMIN 3.4 g/dl (3.4-5.0); CALCIUM 9.1 mg/dL (8.5-10.1)
[2024-03-10 10:46] LABS: BLOOD UREA NITROGEN 6.7 mg/dL (7-18)
[2024-03-10 10:49] LABS: CREATININE 0.8 mg/dL (0.55-1.3)
[2024-03-10 10:50] LABS: BILIRUBIN,TOTAL 0.5 mg/dL (0.2-1); TOT PROT 6.5 g/dl (6.4-8.2)
[2024-03-10] MEDS: IBUPROFEN 400 MG TABLET (FP) PO SCH (17:09)
[2024-03-10] MEDS: DEXTROSE 5%-LACTATED RINGERS 1,000 ML IV SCH (18:57)
[2024-03-10] MEDS: ACETAMINOPHEN 500 MG TABLET (FP) PO SCH (19:59)
[2024-03-10 20:50] LABS: PH,URINE 5.5 (5.0-8.0); URINE APPEARANCE CLEAR; URINE BILIRUBIN NEGATIVE (NEGATIVE); URINE COLOR YELLOW; URINE GLUCOSE (UA) NEGATIVE (NEGATIVE); URINE LEUK ESTERASE NEGATIVE (NEGATIVE); URINE NITRITE NEGATIVE (NEGATIVE); URINE PROTEIN NEGATIVE (NEGATIVE); URINE UROBILINOGEN 0.2 mg/dL (0.2-1.0)
[2024-03-10] MEDS: PSYLLIUM 5.85 GM PACKET PO ONE (21:06)
[2024-03-10] MEDS: FAMOTIDINE 20 MG TABLET PO SCH (21:08)
[2024-03-10 21:19] LABS: URINE KETONE 1+ (NEGATIVE)
[2024-03-10] MEDS: DICYCLOMINE HCL 10 MG CAPSULE PO PRN (22:07)
[2024-03-11 06:23] VITALS: RESP 18
[2024-03-11] MEDS ORDERED: PSYLLIUM 5.85 GM PACKET PO SCH (10:00)
[2024-03-11 10:25] LABS: BASO % 0.3 % (0-2.0); EOS % 3.7 % (0-4.5); HEMATOCRIT 39.5 % (32.4-45.2); HEMOGLOBIN 12.8 GM/dL (10.7-15.3); LYMPH % 39.1 % (8-40); MCH 28.3 pg (25.7-33.7); MCHC 32.4 g/dl (32.0-36.0); MEAN CELL VOLUME 87.3 fl (80-96); MEAN PLT VOLUME 8.2 fl (7.5-11.1); NEUT % 45.9 % (42.8-82.8); PLATELET COUNT 314 10^3/uL (134-434); RBC 4.52 M/mm3 (3.60-5.2); RDW 12.9 % (11.6-15.6); WHITE BLOOD COUNT 3.6 K/mm3 (4.0-10.0)
[2024-03-11 10:27] LABS: INR 1.03 (0.83-1.09); PROTHROMBIN TIME (PATIENT) 11.2 SEC (9.7-13.0)
[2024-03-11 10:49] LABS: POTASSIUM 4.4 mmol/L (3.5-5.1)
[2024-03-11 10:51] LABS: ALBUMIN 3.6 g/dl (3.4-5.0)
[2024-03-11 10:53] LABS: BLOOD UREA NITROGEN 5.4 mg/dL (7-18)
[2024-03-11 10:54] LABS: BILIRUBIN,DIRECT 0.2 mg/dL (0.0-0.2); CALCIUM 9.2 mg/dL (8.5-10.1); MAGNESIUM 2.1 mg/dL (1.8-2.4)
[2024-03-11 10:55] LABS: ALBUMIN 3.6 g/dl (3.4-5.0)
[2024-03-11 10:56] LABS: BILIRUBIN,TOTAL 0.8 mg/dL (0.2-1); TOT PROT 6.7 g/dl (6.4-8.2)
[2024-03-11 10:57] LABS: CREATININE 0.7 mg/dL (0.55-1.3); PHOSPHOROUS 2.7 mg/dL (2.5-4.9)
[2024-03-11 10:58] LABS: BILIRUBIN,TOTAL 0.9 mg/dL (0.2-1); TOT PROT 6.8 g/dl (6.4-8.2)
[2024-03-11 15:52] VITALS: BP 110/77; PULSE 81; TEMP 97.9
== END 2024-03-11 19:43 | disposition home or self-care (01) | DRG 373 ==
LOC: JER 12:50 → JERBED 21:00 → J5S 22:51
PROVIDERS: ADMIT Internal Medicine; ATTEND Internal Medicine
DX: A04.72 Enterocolitis due to Clostridium difficile, not specified as recurrent (principal); J45.909 Unspecified asthma, uncomplicated; K64.8 Other hemorrhoids; K58.9 Irritable bowel syndrome, unspecified; F31.9 Bipolar disorder, unspecified; F43.10 Post-traumatic stress disorder, unspecified; F50.9 Eating disorder, unspecified; Z68.23 Body mass index [BMI] 23.0-23.9, adult; M79.7 Fibromyalgia; F41.8 Other specified anxiety disorders; E28.2 Polycystic ovarian syndrome; N28.1 Cyst of kidney, acquired
CPT/HCPCS: 0241U-QW; 36415; 74176-TC; 80048; 80053; 80076; 81003; 82272; 82550; 83690; 83735; 83993; 84100; 84703; 85025; 85027; 85610; 86140; 86803; 86850; 86900; 86901; 87045; 87046; 87205; 87207; 87209; 87324; 87328; 87329; 87389; 87425; 87449; 87493; 93005; 93010; 99285-25; J0131

== ENCOUNTER 2024-04-02 09:45 | Observation (INO) | payer OTHER ==
[2024-04-02 10:02] VITALS: BMI 23.1
[2024-04-02] MEDS ORDERED: ONDANSETRON 4 MG/2 ML VIAL ONE (11:31)
[2024-04-02] MEDS: SODIUM CHLORIDE 0.9% 500 ML INFUS.BAG IV ONE (11:44)
[2024-04-02] MEDS: ONDANSETRON 4 MG/2 ML VIAL IVPUSH ONE (11:45)
[2024-04-02 11:48] LABS: BASO % 0.5 % (0-2.0); EOS % 2.6 % (0-4.5); HEMATOCRIT 38.3 % (32.4-45.2); HEMOGLOBIN 12.6 GM/dL (10.7-15.3); MCH 28.7 pg (25.7-33.7); MCHC 33.1 g/dl (32.0-36.0); MEAN CELL VOLUME 86.9 fl (80-96); MEAN PLT VOLUME 8.1 fl (7.5-11.1); MONO % 7.8 % (3.8-10.2); NEUT % 56.1 % (42.8-82.8); PLATELET COUNT 268 10^3/uL (134-434); RDW 13.4 % (11.6-15.6); WHITE BLOOD COUNT 4.6 K/mm3 (4.0-10.0)
[2024-04-02 12:03] LABS: INR 0.99 (0.83-1.09); PROTHROMBIN TIME (PATIENT) 10.9 SEC (9.7-13.0)
[2024-04-02 12:06] LABS: ACTIVATED PTT 29.6 SECONDS (25.2-36.5)
[2024-04-02 12:07] LABS: CHLORIDE 107 mmol/L (98-107); POTASSIUM 4.2 mmol/L (3.5-5.1); SODIUM 140 mmol/L (136-145)
[2024-04-02 12:09] LABS: CALCIUM 8.7 mg/dL (8.5-10.1)
[2024-04-02 12:10] LABS: ALBUMIN 3.9 g/dl (3.4-5.0); ANION GAP 7 mmol/L (4-13); BLOOD UREA NITROGEN 8.2 mg/dL (7-18); CO2 26 mmol/L (21-32); GLUCOSE,RANDOM 82 mg/dL (74-106); MAGNESIUM 2.3 mg/dL (1.8-2.4)
[2024-04-02 12:13] LABS: CREATININE 0.7 mg/dL (0.55-1.3); SGOT/AST 13 U/L (15-37); SGPT/ALT 14 U/L (13-61)
[2024-04-02 12:14] LABS: BILIRUBIN,TOTAL 0.9 mg/dL (0.2-1)
[2024-04-02 12:15] LABS: TOT PROT 7.2 g/dl (6.4-8.2)
[2024-04-02 12:16] LABS: ALK PHOS 47 U/L (45-117)
[2024-04-02 12:56] LABS: PH,URINE 8.5 (5.0-8.0); URINE APPEARANCE CLOUDY; URINE BILIRUBIN NEGATIVE (NEGATIVE); URINE COLOR YELLOW; URINE GLUCOSE (UA) NEGATIVE (NEGATIVE); URINE KETONE TRACE (NEGATIVE); URINE LEUK ESTERASE NEGATIVE (NEGATIVE); URINE NITRITE NEGATIVE (NEGATIVE); URINE PROTEIN NEGATIVE (NEGATIVE); URINE UROBILINOGEN 0.2 mg/dL (0.2-1.0)
[2024-04-02] MEDS ORDERED: morphine SULFATE 4 MG/ML VIAL ONE (12:56)
[2024-04-02 12:59] LABS: HCG,QUALITATIVE URINE Negative
[2024-04-02] MEDS: morphine CARPU-JECT 4 MG/1 ML DISP.SYRIN IVPUSH ONE (13:02)
[2024-04-02 13:42] LABS: HIV INTERPRETATION NEGATIVE (NEGATIVE)
[2024-04-02] MEDS ORDERED: GABAPENTIN 300 MG CAPSULE PO SCH (14:00)
[2024-04-02] MEDS: LACTATED RINGERS SOLUTION 1,000 ML/1,000 ML INFUS.BAG IV SCH ×2 (14:29→16:03)
[2024-04-02] MEDS: GABAPENTIN 400 MG CAPSULE PO SCH (15:51)
[2024-04-02] MEDS: ACETAMINOPHEN 1000 MG/100 ML BAG IVPB PRN (16:06)
[2024-04-02] MEDS: BISACODYL 5 MG TABLET.DR (FP) PO ONE (16:06)
[2024-04-02] MEDS: PEG 3350/NA SULF BICARB CL/KCL 4000 ML SOLN.RECON PO ONE (17:27)
[2024-04-02] MEDS ORDERED: ACETAMINOPHEN 1000 MG/100 ML BAG IVPB PRN (18:10)
[2024-04-02] MEDS: POLYETHYLENE GLYCOL (HEALTHYLAX) 3350 17 GM PACKET PO SCH (19:24)
[2024-04-02] MEDS: diphenhydrAMINE HCL 25 MG CAPSULE (FP) PO ONE (21:12)
[2024-04-03] MEDS: DULoxetine HCL 30 MG CAPSULE.DR PO SCH (09:22)
[2024-04-03] MEDS ORDERED: DULoxetine HCL 60 MG CAPSULE.DR PO SCH (10:00)
[2024-04-03 10:13] LABS: BASO % 0.3 % (0-2.0); EOS % 2.2 % (0-4.5); HEMATOCRIT 34.2 % (32.4-45.2); HEMOGLOBIN 11.3 GM/dL (10.7-15.3); LYMPH % 30.7 % (8-40); MCH 29.1 pg (25.7-33.7); MCHC 33.1 g/dl (32.0-36.0); MEAN CELL VOLUME 87.8 fl (80-96); MEAN PLT VOLUME 8.5 fl (7.5-11.1); MONO % 7.4 % (3.8-10.2); NEUT % 59.4 % (42.8-82.8); PLATELET COUNT 200 10^3/uL (134-434); RDW 13.1 % (11.6-15.6); WHITE BLOOD COUNT 4.1 K/mm3 (4.0-10.0)
[2024-04-03 10:16] LABS: INR 1.03 (0.83-1.09); PROTHROMBIN TIME (PATIENT) 11.2 SEC (9.7-13.0)
[2024-04-03 12:06] LABS: POTASSIUM 4.2 mmol/L (3.5-5.1)
[2024-04-03 12:15] LABS: BILIRUBIN,TOTAL 1.1 mg/dL (0.2-1); TOT PROT 5.9 g/dl (6.4-8.2)
[2024-04-03 12:21] LABS: ALBUMIN 3.4 g/dl (3.4-5.0); BLOOD UREA NITROGEN 5.4 mg/dL (7-18); CALCIUM 8.3 mg/dL (8.5-10.1)
[2024-04-03 12:22] LABS: MAGNESIUM 2.1 mg/dL (1.8-2.4)
[2024-04-03 12:24] LABS: CREATININE 0.6 mg/dL (0.55-1.3)
[2024-04-03 12:25] LABS: PHOSPHOROUS 2.4 mg/dL (2.5-4.9)
[2024-04-03] MEDS: ACETAMINOPHEN 325 MG TABLET (FP) PO PRN (16:17)
[2024-04-03] MEDS: ONDANSETRON 4 MG/2 ML VIAL IVPUSH PRN (19:08)
[2024-04-04 09:08] LABS: HEMATOCRIT 37.1 % (32.4-45.2); HEMOGLOBIN 12.4 GM/dL (10.7-15.3); MCH 29.3 pg (25.7-33.7); MCHC 33.5 g/dl (32.0-36.0); MEAN CELL VOLUME 87.3 fl (80-96); MEAN PLT VOLUME 8.3 fl (7.5-11.1); PLATELET COUNT 235 10^3/uL (134-434); RBC 4.25 M/mm3 (3.60-5.2); RDW 13.2 % (11.6-15.6); WHITE BLOOD COUNT 7.2 K/mm3 (4.0-10.0)
[2024-04-04 09:21] LABS: POTASSIUM 4.1 mmol/L (3.5-5.1)
[2024-04-04 09:24] VITALS: BP 114/82; PULSE 87; RESP 17; TEMP 98.8
[2024-04-04 09:29] LABS: CALCIUM 8.8 mg/dL (8.5-10.1)
[2024-04-04 09:30] LABS: ALBUMIN 3.6 g/dl (3.4-5.0); BLOOD UREA NITROGEN 7.9 mg/dL (7-18); MAGNESIUM 2.1 mg/dL (1.8-2.4)
[2024-04-04 09:33] LABS: CREATININE 0.7 mg/dL (0.55-1.3)
[2024-04-04 09:35] LABS: BILIRUBIN,TOTAL 0.8 mg/dL (0.2-1); TOT PROT 6.7 g/dl (6.4-8.2)
== END 2024-04-04 13:30 | disposition home or self-care (01) ==
LOC: JER 09:45 → JERBED 12:29 → UNDOADMOB 12:29 → INTOOBSV 12:29 → JERBED 15:19 → J7W 15:19 → JERBED 04-03 13:55
PROVIDERS: ADMIT Internal Medicine; ATTEND Physician Assistant
PROC: 0DBL8ZX Excision of Transverse Colon, Via Natural or Artificial Opening Endoscopic, Diagnostic (ICD-10-PCS; 2024-04-03)
PROC: 0DBN8ZX Excision of Sigmoid Colon, Via Natural or Artificial Opening Endoscopic, Diagnostic (ICD-10-PCS; 2024-04-03)
PROC: 0DBP8ZX Excision of Rectum, Via Natural or Artificial Opening Endoscopic, Diagnostic (ICD-10-PCS; 2024-04-03)
PROC: 0DBM8ZX Excision of Descending Colon, Via Natural or Artificial Opening Endoscopic, Diagnostic (ICD-10-PCS; 2024-04-03)
PROC: 0DBN8ZZ Excision of Sigmoid Colon, Via Natural or Artificial Opening Endoscopic (ICD-10-PCS; 2024-04-03)
PROC: 3E033NZ Introduction of Analgesics, Hypnotics, Sedatives into Peripheral Vein, Percutaneous Approach (ICD-10-PCS; 2024-04-03)
PROC: 3E0337Z Introduction of Electrolytic and Water Balance Substance into Peripheral Vein, Percutaneous Approach (ICD-10-PCS; 2024-04-03)
PROC: 3E033GC Introduction of Other Therapeutic Substance into Peripheral Vein, Percutaneous Approach (ICD-10-PCS; 2024-04-03)
PROC: 0DBK8ZX Excision of Ascending Colon, Via Natural or Artificial Opening Endoscopic, Diagnostic (ICD-10-PCS; principal; 2024-04-03 11:30)
DX: R10.84 Generalized abdominal pain (principal); D12.5 Benign neoplasm of sigmoid colon; N80.9 Endometriosis, unspecified; F41.8 Other specified anxiety disorders; E28.2 Polycystic ovarian syndrome; K64.8 Other hemorrhoids; K57.30 Diverticulosis of large intestine without perforation or abscess without bleeding; Z88.8 Allergy status to other drugs, medicaments and biological substances
CPT/HCPCS: 36415; 74176-TC; 80053; 81003; 83735; 84100; 84702; 84703; 85025; 85027; 85610; 85730; 86803; 86850; 86900; 86901; 87045; 87046; 87086; 87209; 87389; 88305-TC; 93005; 93010; 99285-25; G0378; J0131